=== PATIENT | female | born 1955 | race Hispanic/Latino ===

== ENCOUNTER 2018-09-29 10:58 | Observation (INO) | payer BC ==
[~2018-09-29] VITALS: Ht 157.5 cm; Wt 95.3 kg
[~2018-09-29 10:58] MED LIST: ATORVASTATIN CA20 MG PO; CLOPIDOGREL75 MG PO; ISOSORBIDE MON120 MG PO; LOSARTAN-HCTZ1 EACH PO; METOPROLOL TART50 MG PO
[2018-09-29] MEDS ORDERED: ASPIRIN 81 MG CHEW TAB PO ONE (11:15)
[2018-09-29 12:00] LABS: BILIRUBIN,URINE NEGATIVE (NEGATIVE); CLARITY,URINE SL CLOUDY (CLEAR); COLOR,URINE YELLOW (YELLOW); KETONES,URINE NEGATIVE (NEGATIVE); LEUKOCYTE ESTERASE ,URINE NEGATIVE (NEGATIVE); NITRITE,URINE NEGATIVE (NEGATIVE); PROTEIN,URINE DIPSTICK NEGATIVE (NEGATIVE); URINE UROBILINOGEN 0.2 mg/dL (0.2 - 1)
[2018-09-29 12:03] LABS: BASOPHILS % 0.4 % (0.0-1.0); EOSINOPHILS # (AUTO) 0.2 (0.0-0.4); HEMATOCRIT 38.2 % (34.2-44.1); HEMOGLOBIN 13.5 g/dL (12.0-16.0); LYMPHOCYTES # (AUTO) 1.6 (1.0-3.2); LYMPHOCYTES % 28.7 % (18.0-39.1); MEAN CORPUSCULAR HGB CONC 35.3 g/dL (31-35); MEAN CORPUSCULAR VOLUME 87.8 fL (81-99); MONOCYTES # (AUTO) 0.5 (0.2-0.8); MONOCYTES % 7.9 % (4.4-11.3); NEUTROPHILS # (AUTO) 3.4 (2.1-6.9); NEUTROPHILS % 59.6 % (38.7-80.0); PLATELET COUNT 236 x10e3/uL (140-360); RED BLOOD COUNT 4.35 x10e6/uL (3.6-5.1); RED CELL DISTRIBUTION WIDTH 11.4 % (11.7-14.4)
[2018-09-29 12:13] LABS: BACTERIA,URINE MODERATE /HPF; EPITHELIAL CELLS,URINE MODERATE /LPF; RBC,URINE 0-5 /HPF (0-5)
[2018-09-29 12:13] LABS: INR 1.04; PROTHROMBIN TIME 14.1 seconds (11.9-14.5)
[2018-09-29 12:14] LABS: PARTIAL THROMBOPLASTIN TIME 31.3 seconds (23.8-35.5)
[2018-09-29 12:19] LABS: ALANINE AMINOTRANSFERASE 71 IU/L (0-55); ALBUMIN 3.9 g/dL (3.5-5.0); ALBUMIN/GLOBULIN RATIO 1.2 (0.8-2.0); ALKALINE PHOSPHATASE 98 IU/L (40-150); ANION GAP 13.3 mmol/L (8-16); BLOOD UREA NITROGEN 9 mg/dL (7-26); BUN/CREATININE RATIO 11 (6-25); CALCIUM 9.7 mg/dL (8.4-10.2); CARBON DIOXIDE 29 mmol/L (22-29); CHLORIDE 98 mmol/L (98-107); CREATINE KINASE 100 IU/L (29-168); CREATININE, SERUM 0.79 mg/dL (0.57-1.11); EST GLOMERULAR FILTRATION RATE > 60 ML/MIN (60-); GLUCOSE 258 mg/dL (74-118); MAGNESIUM 1.9 MG/DL (1.3-2.1); POTASSIUM 3.3 mmol/L (3.5-5.1); SODIUM 137 mmol/L (136-145)
[2018-09-29 12:39] LABS: THYROID STIMULATING HORMONE 1.466 uIU/mL (0.350-4.940)
--- NOTE | 2018-09-29 13:12 | Diagnostic Imaging Report ---
Examination: Single AP view of the chest. COMPARISON: None. INDICATION: Chest pain DISCUSSION: Lines/tubes: None. Lungs: The lungs are well inflated and clear. No pneumonia or pulmonary edema. Pleura: No pleural effusion or pneumothorax. Heart and mediastinum: Prominent heart size. Bones and soft tissues: No acute bony abnormalities. IMPRESSION: 1. No acute cardiopulmonary abnormalities. Signed by: Dr. Smith Earl M.D. on 09/29/2018 1:09 PM
--- NOTE | 2018-09-29 13:22 | NUR ---
rec'd report in walking rounds with clifton brock
--- NOTE | 2018-09-29 13:22 | NUR ---
Walking rounds with EUGENIA Chand.
--- NOTE | 2018-09-29 16:45 | NUR ---
dr. watson in room speaking with pateint/family. pt to be admitted
[2018-09-29] MEDS ORDERED: NITROGLYCERIN 0.4 MG SUBL SL PRN (17:00)
[2018-09-29] MEDS ORDERED: DEXTROSE 50% SYRINGE 50 ML IV PRN (17:00)
[2018-09-29] MEDS ORDERED: ONDANSETRON HCL INJ 2MG/ML 2ML 2 MG/ML VIAL IV PRN (17:00)
[2018-09-29] MEDS ORDERED: MORPHINE SULFATE 2 MG/ML SYR 1ML IV PRN (17:00)
[2018-09-29] MEDS ORDERED: ASPIR 8181 MG (17:03)
[2018-09-29] MEDS ORDERED: GABAPENTIN600 MG (17:03)
[2018-09-29] MEDS ORDERED: METFORMIN HCL500 MG PO (17:03)
[2018-09-29] MEDS ORDERED: METOPROLOL SUCC50 MG (17:03)
[2018-09-29] MEDS ORDERED: MORPHINE SULFATE INJ 4 MG/ML INJ 1ML IV PRN (17:15)
--- OUTSIDE RECORDS SUMMARY | 2018-09-29 17:29 | XMS REPORT ---
Author [facility] Address Unknown Phone Unavailable Care Team Providers Care Director Of Nursing Name Role Phone Danna SILVA Unavailable Unavailable Problems This patient has no known problems. Allergies, Adverse Reactions, Alerts This patient has no known allergies or adverse reactions. Medications This patient has no known medications. Results Test Description Test Time Test Comments Text Results Atomic Results Result Comments CHEST SINGLE (PORTABLE) 2018-09-29 13:08:00 [place] [id number] Patient Name: YOSI SALTER MR #: [id number] : 1955 Age/Sex: 63/F Req #: [id number] Adm Physician: Ordered by: EL SOTOMAYOR RETAIL PRESENTATION SPECIALIST Report #: [id number] Location: ER Room/Bed: Procedure: [id number] DX/CHEST SINGLE (PORTABLE) Exam Date: 09/29/18 Exam Time: 1050 REPORT STATUS: Signed Examination: Single AP view of the chest. CO MPARISON: None. INDICATION: Chest pain DISCUSSION: Lines/tubes: None. Lungs: The lungs are well inflated and clear. No pneumonia or pulmonary edema. Pleura: No pleural effusion or pneumothorax. Heart and mediastinum: Prominent heart size. Bones and soft tissues: No acute bony abnormalities. IMPRESSION: 1. No acute cardiopulmonary abnormalities. Signed by: Dr. Madhavi Byrd M.D. on 09/29/2018 1:09 PM Dictated By: MADHAVI BYRD MD 1300 Transcribed By: GABRIELLA on 09/29/18 1307 COPY TO: EL SOTOMAYOR NP
--- NOTE | 2018-09-29 17:37 | NUR ---
report called to clifton duque for this pt. to go to rm 176
[2018-09-29] MEDS: FAMOTIDINE 20 MG TAB PO SCH (17:43)
[2018-09-29] MEDS: NITROGLYCERIN 2% OINT 1 GM PKT TOP SCH ×2 (18:00→23:38)
--- NOTE | 2018-09-29 18:12 | NUR ---
Patient arrived to the unit with a diagnosis of accelerated angina and hyperglycemia. Patient in NAD. She was oriented to new room and instructed to call for assistance as needed and verbalized understanding.
[2018-09-29 18:25] VITALS: BP 160/71
[2018-09-29] MEDS: SODIUM CHLORIDE 0.9% 1000ML 1,000 ML IV SCH ×2 (18:58→20:38)
[2018-09-29 19:17] VITALS: BP 160/71
[2018-09-29 19:40] LABS: CREATINE KINASE MB 1.2 ng/mL (0-5.0)
[2018-09-29] MEDS: INSULIN LISPRO 100 UNIT/1 ML 3ML VIAL SQ SCH (20:44)
--- NOTE | 2018-09-29 20:46 | NUR ---
Patient uncomfortable with insulin. States she takes Metformin at home. Home medication reviewed
[2018-09-30] VITALS: BP 126/58
[2018-09-30 04:00] VITALS: BP 145/68
[2018-09-30] MEDS: NITROGLYCERIN 2% OINT 1 GM PKT TOP SCH ×2 (04:29→12:00)
[2018-09-30] MEDS: FAMOTIDINE 20 MG TAB PO SCH (04:29)
[2018-09-30 05:31] LABS: BASOPHILS % 0.5 % (0.0-1.0); EOSINOPHILS # (AUTO) 0.2 (0.0-0.4); EOSINOPHILS % 2.9 % (0.0-6.0); HEMATOCRIT 35.9 % (34.2-44.1); HEMOGLOBIN 12.3 g/dL (12.0-16.0); LYMPHOCYTES # (AUTO) 1.8 (1.0-3.2); MEAN CORPUSCULAR HEMOGLOBIN 30.9 pg (28-32); MEAN CORPUSCULAR HGB CONC 34.3 g/dL (31-35); MEAN CORPUSCULAR VOLUME 90.2 fL (81-99); MONOCYTES # (AUTO) 0.5 (0.2-0.8); NEUTROPHILS # (AUTO) 3.4 (2.1-6.9); NEUTROPHILS % 58.3 % (38.7-80.0); PLATELET COUNT 215 x10e3/uL (140-360); RED BLOOD COUNT 3.98 x10e6/uL (3.6-5.1); RED CELL DISTRIBUTION WIDTH 11.4 % (11.7-14.4)
[2018-09-30 05:39] LABS: CREATINE KINASE 84 IU/L (29-168)
[2018-09-30] MEDS ORDERED: ACETAMINOPHEN 325 MG TAB PO PRN (05:45)
[2018-09-30 06:03] LABS: ANION GAP 11.1 mmol/L (8-16); BLOOD UREA NITROGEN 11 mg/dL (7-26); BUN/CREATININE RATIO 15 (6-25); CALCIUM 8.7 mg/dL (8.4-10.2); CARBON DIOXIDE 28 mmol/L (22-29); CHLORIDE 102 mmol/L (98-107); CHOL/HDL RATIO 2.8 (3.0-3.6); CHOLESTEROL 94 MD/DL (0-199); CREATININE, SERUM 0.72 mg/dL (0.57-1.11); EST GLOMERULAR FILTRATION RATE > 60 ML/MIN (60-); GLUCOSE 223 mg/dL (74-118); HDL CHOLESTEROL 33 MG/DL (40-60); LDL CHOLESTEROL 36 MG/DL (60-130); POTASSIUM 3.1 mmol/L (3.5-5.1); SODIUM 138 mmol/L (136-145); TRIGLYCERIDES 127 MG/DL (0-149)
[2018-09-30 07:15] VITALS: BP 145/68
--- NOTE | 2018-09-30 07:15 | NUR ---
AM assessment done. Patient denies any CP or SOB at this time. Tele#[id number], SR@[email or web address]. POC discussed in [place]. Patient instructed to call for assistance as needed. Call osman within reach.
[2018-09-30] MEDS: INSULIN LISPRO 100 UNIT/1 ML 3ML VIAL SQ SCH ×2 (07:30→11:30)
[2018-09-30] MEDS: METFORMIN HCL 500 MG TAB PO SCH ×2 (08:05→14:35)
[2018-09-30] MEDS ORDERED: ASPIRIN 81 MG ENTERIC COATED PO SCH (09:00)
[2018-09-30] MEDS ORDERED: GABAPENTIN 300 MG CAP PO SCH (09:00)
[2018-09-30] MEDS ORDERED: CLOPIDOGREL BISULFATE 75 MG TAB PO SCH (09:00)
[2018-09-30] MEDS ORDERED: ATORVASTATIN 20 MG TAB PO SCH (09:00)
[2018-09-30] MEDS ORDERED: NITROFURANTOIN MACROCRYSTALS 100 MG CAP PO SCH (09:00)
[2018-09-30] MEDS ORDERED: ISOSORBIDE MONONITRATE 30 MG TAB CR PO SCH (09:00)
[2018-09-30] MEDS ORDERED: METOPROLOL SUCCINATE 50 MG TAB XL PO SCH (09:00)
[2018-09-30 09:14] VITALS: BP 121/57
[2018-09-30] MEDS ORDERED: AMLODIPINE BESYL5 MG PO (10:00)
[2018-09-30] MEDS ORDERED: ONDANSETRON HCL 4 MG ORAL DISINTEGRATING TAB PO PRN (10:30)
[2018-09-30 11:46] VITALS: BP 107/55
--- NOTE | 2018-09-30 13:22 | Consultation ---
DATE OF CONSULTATION: 09/30/2018 Cardiology Consultation REASON FOR CONSULTATION: Repeated chest pain episodes. HISTORY OF PRESENT ILLNESS: Ms. Alvarez is a 63-year-old lady with past medical history of hypertension, hypercholesteremia, type 2 diabetes, coronary artery disease with known vasospastic coronary arteries with last heart catheterization in August of 2017. On catheterization, there was a noted 30% to 40% disease in the LAD, minimal disease in the circumflex and ostial 50% RCA lesion noted to be vasospastic. In light of this, the patient has been on antispasmodic medication with calcium channel dixie and clinically has been doing well. She comes into this institution with a 2-week history of episodic left parasternal stabbing sensation in the chest with radiation to the bilateral shoulder region. The pains occur lasting seconds to minutes, associated with malaise and concerns that there may be issues going on with her heart. She finally came into the hospital for further care and management. We had cycled her for serial cardiac enzymes and noted to be negative. An EKG revealed sinus rhythm and no ischemic changes. I asked if she has had any recent changes in medications and in fact, she reports intermittent decreased use of the calcium channel dixie on account of potential drug-drug interactions as noted by the pharmacist with her H2 dixie therapy for her GERD. We had a long discussion discussing her noninvasive findings and discussion in terms of management options and the patient wishes a more conservative approach and wishes to go home as she is chest pain free this morning. PAST MEDICAL HISTORY: 1. Hypertension, essential. 2. Type 2 diabetes. 3. Coronary artery disease with last heart catheterization in August 2017, showing 30% LAD disease, circumflex artery with just minimal disease and RCA with 50% ostial stenosis with spasm. 4. Obesity. PAST SURGICAL HISTORY: 1. History of appendectomy. 2. History of tonsillectomy. 3. History of cholecystectomy. 4. History of hysterectomy. FAMILY HISTORY: Father of old age. Mother at 72 with some sort of cancer. Nine siblings, few with hypertension, diabetes, and coronary disease. Three children, one son, two daughters. SOCIAL HISTORY: She is a lifelong nonsmoker. Denies any alcohol or illicit drug use. ALLERGIES: NO KNOWN DRUG ALLERGIES. HOME MEDICATIONS: Includes Norvasc 2.5 mg daily, aspirin 81 mg daily, atorvastatin 20 mg daily, Plavix 75 mg daily, gabapentin 600 mg b.i.d., Imdur 120 mg daily, losartan/HCTZ 50/12.5 mg daily, metformin 500 mg b.i.d., Toprol-XL 50 mg daily. REVIEW OF SYSTEMS: GENERAL: Denies any fevers, chills, or weight changes. HEENT: No headaches, visual complaints, sore throat, or stuffy nose. RESPIRATORY: Denies any pleuritic chest pain. Has chronic exertional dyspnea, class 2-3. CARDIOVASCULAR: As per HPI. Denies any subjective palpitations, syncope, or near syncope. GI: No GERD, bright red blood per rectum, melena, or hematemesis. : Denies any dysuria, pyuria, or change in urinary frequency. MUSCULOSKELETAL: Positive for arthritic back pains, knee pains. No leg swelling. NEUROLOGIC: No seizures, headaches, visual complaints, or tingling. Remainder of review of systems 14 points negative, otherwise mentioned. PHYSICAL EXAMINATION: VITAL SIGNS: Height of 62 inches, weight of 210 pounds, BMI is 38.4, blood pressure is 121/57, pulse of 75, respiratory rate 18, temperature of 97.6, O2 saturation 96% on room air. GENERAL: This is a well-nourished, obese lady, who is currently in no apparent distress. HEENT: Normocephalic, atraumatic. Pupils equal, round, and reactive to light. Extraocular movements are intact. Oropharynx is clear. NECK: No elevation of jugular venous pulsation. No carotid bruits. CARDIOVASCULAR: Regular rate and rhythm. Normal S1, S2. Soft 2/6 systolic murmur at the right upper sternal border. LUNGS: Largely clear to auscultation bilaterally with good air entry. There is no chest wall tenderness to palpation. ABDOMEN: Soft, nontender, obese. Normoactive bowel sounds. No hepatosplenomegaly. BACK: No costovertebral angle tenderness. EXTREMITIES: Warm with 2+ bilateral radial pulses, 1+ femoral pulses, and 1+ pedal pulses. NEUROLOGIC: Cranial nerves II through XII are intact. Strength is 5/5. Grossly nonfocal. PSYCHIATRIC: Positive for anxiety. No depression. Normal fluent speech. LABORATORY DATA: White count of 5.9, hemoglobin 12.3, hematocrit 35.9, platelets of 215. Sodium 138, potassium 3.1, chloride 102, bicarb 28, BUN 11, creatinine 0.72, glucose of 223. Calcium of 8.7, AST 56, ALT 71, alkaline phosphatase 98, total protein of 77.2, albumin of 3.9. LDL is 36, HDL 33, triglycerides 127. TSH is 1.466. Troponin is less than 0.001 to 0.003 to less than 0.001, normal CK and MB. BNP is less than 10. EKG reveals normal sinus rhythm, normal axis and no ST-T wave changes. Chest x-ray is unremarkable. DIAGNOSES: 1. Repeated episodes of chest pain and differential diagnosis could be vasospastic angina and might have been exacerbated secondary to decreased calcium channel dixie use. 2. Hypertension, essential. 3. Hypercholesteremia. 4. Type 2 diabetes. 5. Obesity. 6. Hypokalemia. PLAN/RECOMMENDATIONS: 1. From a cardiovascular standpoint, we had a long discussion in terms of management options including risk factor modification and medical therapy versus ischemic re-evaluation with stress test versus more invasive evaluation. The patient has chosen to be left alone for the time being with medical therapy. 2. Noninvasive findings of negative biomarkers and EKG as discussed with the patient. 3. We will respect the patient's wishes and let her go home and follow up with us as an outpatient. 4. We will continue current antianginal therapy. 5. Extensive discussion with the patient including reviewing her care, previous heart catheterization, etc. MD VIPUL Mckeon/DILLON /[id number]
[2018-09-30 13:29] LABS: CREATINE KINASE MB 1.5 ng/mL (0-5.0)
[2018-09-30 13:43] LABS: CHOL/HDL RATIO 2.8 (3.0-3.6)
[2018-09-30] MEDS ORDERED: POTASSIUM CHLORIDE 10MEQ EA PO NR (14:00)
--- NOTE | 2018-09-30 15:14 | NUR ---
patient discharged home with written instructions and follow up care. Both patient and spouse verbalized understanding. IV dc'd earlier, cath intact and small dressing applied. Patient wheeled to private vehicle.
--- NOTE | 2018-10-01 05:11 | Discharge Summary ---
DISCHARGE DIAGNOSES: 1. Chest pain. 2. Diabetes. 3. Hypertension. 4. History of Crohn disease. HISTORY OF PRESENT ILLNESS AND HOSPITAL COURSE: The patient is well known to Dr. Ann, presented with some chest pain. She was brought to the emergency room. She was admitted. She ruled out for myocardial infarction. She was seen by Dr. Ann, who had a long talk with the patient, where the patient states at this time, she does not want any further invasive workup. She wants to do medical therapy only. So, he had a long talk to her about risk modifications, diet, exercise, weight loss, and the patient then wished to be discharged home. Follow up with him as an outpatient as well as her PCP, Dr. Connolly. So, she will do this within 1 to 2 weeks with both physicians, so she was discharged home in good condition. Please see hospital chart for full details. MD SHAYY Felix/DILLON /[id number]
== END 2018-09-30 15:14 | disposition home or self-care (01) ==
LOC: ER 10:58 → ERHOLD 16:52 → IMCU 18:16
PROVIDERS: ADMIT Internal Medicine; ATTEND Internal Medicine
DX: R07.9 Chest pain, unspecified (principal); M25.512 Pain in left shoulder; M25.511 Pain in right shoulder; I10 Essential (primary) hypertension; F41.9 Anxiety disorder, unspecified; E78.5 Hyperlipidemia, unspecified; Z90.49 Acquired absence of other specified parts of digestive tract; Z95.5 Presence of coronary angioplasty implant and graft; E11.65 Type 2 diabetes mellitus with hyperglycemia; Z82.49 Family history of ischemic heart disease and other diseases of the circulatory system; N39.0 Urinary tract infection, site not specified; R79.89 Other specified abnormal findings of blood chemistry; E78.00 Pure hypercholesterolemia, unspecified; Z80.9 Family history of malignant neoplasm, unspecified; E66.9 Obesity, unspecified; E87.6 Hypokalemia; Z68.38 Body mass index [BMI] 38.0-38.9, adult; K50.90 Crohn's disease, unspecified, without complications; I25.10 Atherosclerotic heart disease of native coronary artery without angina pectoris; Z79.82 Long term (current) use of aspirin; Z79.84 Long term (current) use of oral hypoglycemic drugs
CPT/HCPCS: 36415 ×2; 71045; 80048; 80053; 80061; 81001; 82550 ×2; 82553 ×2; 82948 ×2; 83735; 83880; 84443; 84484 ×2; 85025 ×2; 85610; 85730; 87086; 93005; 99284; G0378 ×2; J7030